=== PATIENT | male | born 1945 | race Hispanic/Latino ===

== ENCOUNTER → 2017-10-10 | Day surgery (SDC) | payer MEDICARE, BC ==
[~2017-10-10] MED LIST: AMLODIPINE BESY10 MG PO; ASPIR 8181 MG PO; ATENOLOL25 MG PO; ATORVASTATIN CA10 MG PO; FENTANYL CITRATE/PF 100MCG/2 ML INJ ONE; FINASTERIDE5 MG PO; FLOMAX0.4 MG PO; GLIMEPIRIDE2 MG PO; HYDROCHLOROTHIA25 MG PO; LISINOPRIL40 MG PO; MIDAZOLAM HCL 2 MG/2 ML VIAL ONE; OR PHACO EYE KIT ONE; PREOP PHACO EYE KIT ONE
== END | disposition home or self-care (01) ==
LOC: OR 12:39
PROVIDERS: ATTEND Ophthalmology
DX: H25.11 Age-related nuclear cataract, right eye (principal); G47.33 Obstructive sleep apnea (adult) (pediatric); I10 Essential (primary) hypertension; E11.9 Type 2 diabetes mellitus without complications; R00.1 Bradycardia, unspecified; I45.10 Unspecified right bundle-branch block; Z88.6 Allergy status to analgesic agent; Z88.2 Allergy status to sulfonamides; Z88.8 Allergy status to other drugs, medicaments and biological substances; Z79.82 Long term (current) use of aspirin; Z79.84 Long term (current) use of oral hypoglycemic drugs
CPT/HCPCS: 36415; 66984; 82948; 93005; J2250; V2632

== ENCOUNTER 2018-04-05 21:00 | Emergency (ER) | payer MEDICARE, BC ==
[~2018-04-05] VITALS: Ht 170.2 cm; Wt 87.5 kg
[~2018-04-05 21:00] MED LIST changes: -FENTANYL CITRATE/PF 100MCG/2 ML INJ ONE; -MIDAZOLAM HCL 2 MG/2 ML VIAL ONE; -OR PHACO EYE KIT ONE; -PREOP PHACO EYE KIT ONE
--- OUTSIDE RECORDS SUMMARY | 2018-04-05 21:02 | XMS REPORT ---
Author Organization Unknown Address [address] [place] [address] Phone [phone] Care Team Providers Care Bag Sewer Name Role Phone BEN GR MD 115 [phone] Allergies Code Code System Name Reaction Severity Status Onset 6809 RxNorm Metformin Abdominal Pain Moderate to Severe Active Sulfa (Sulfonamide Antibiotics) Active 157834 RxNorm Tylenol-codeine #3 Active Medications Name Status Start Date Stop Date amlodipine 10 mg tablet Take 1 tablet every day by oral route for 90 days. Active Not available amlodipine besylate 10 mg tabs Completed 05/18/2017 apap/codeine tab 300-30mg Completed 01/25/2017 atorvastatin 10 mg tablet Take 1 tablet every day by oral route for 90 days. Active Not available atorvastatin calcium 10 mg tabs Completed 05/18/2017 doxycycline hyclate 100 mg caps Completed 01/25/2017 finasteride 5 mg tablet Take 1 tablet every day by oral route for 90 days. Active Not available finasteride 5 mg tabs Completed 05/18/2017 FreeStyle Lancets 28 gauge USE DIRECTED Active Not available FreeStyle Lite Strips TEST BLOOD SUGAR DIRECTED ONCE DAILY Active Not available glimepiride 4 mg tablet Take 1 tablet twice a day by oral route for 90 days. Active Not available glimepiride 4 mg tabs Completed 05/18/2017 hydrochlorothiazide 25 mg tablet Take 1 tablet every day by oral route for 90 days. Active Not available hydrochlorothiazide 25 mg tabs Completed 05/18/2017 lisinopril 40 mg tablet Take 1 tablet every day by oral route for 90 days. Active Not available lisinopril 40 mg tabs Completed 05/18/2017 metformin ER 500 mg tablet,extended release 24 hr Take 1 tablet twice a day by oral route for 90 days. Completed 05/18/2017 metformin hcl er 500 mg tb24 Completed 05/18/2017 tamsulosin 0.4 mg capsule Take 1 capsule every day by oral route for 90 days. Active Not available tamsulosin hcl 0.4 mg caps Completed 05/18/2017 Problems Name Status Onset Date Source Type II Diabetes Mellitus Uncontrolled Unknown 11/18/2016 Proteinuric Diabetic Nephropathy Active 11/18/2016 Hyperlipidemia Active 11/18/2016 Benign Essential Hypertension Active 11/18/2016 Nocturia Active 11/18/2016 Raised Prostate Specific Antigen Active 11/18/2016 Type 2 Diabetes Mellitus with Multiple Complications Unknown 11/18/2016 Lower Urinary Tract Symptoms Due to Benign Prostatic Hypertrophy Active 11/18/2016 Type 2 Diabetes Mellitus Active 05/18/2017 History of Tobacco Use Active 05/18/2017 Procedures Date Name Performed by 05/18/2017 US, Abdominal Aorta [facility] [address] [facility] [place] [id number] (Work Place) Notes: tempano plasty left lipoma removed rigt temperal Lab Results Date Name Specimen Result Interpretation Description Value Range Status Address 01/25/2017 CMP, Serum or Plasma Alt 18 U/L 0-55 U/L Final [facility]: [address] Ast 18 U/L 5-34 U/L Final [facility]: [address] Bun 12.8 mg/dL 8.4-25.7 mg/dL Final [facility]: [address] Alk Phos 71 unit/L 40-150 unit/L Final [facility]: [address] Glucose 81 mg/dL 70-99 mg/dL Final [facility]: [address] [place] [address], [place] Albumin 4.3 g/dL 3.5-5.0 g/dL Final [facility]: [address] Creatinine 0.83 mg/dL 0.72-1.25 mg/dL Final [facility]: [address] eGFR Non- >60 mL/min/1.73m2 >60 mL/min/1.73m2 Final [facility]: [address] Total Bilirubin 0.4 mg/dL 0.2-1.2 mg/dL Final [facility]: [address] eGFR - >60 mL/min/1.73m2 >60 mL/min/1.73m2 Final [facility]: [address] Sodium 144 mEq/L 136-145 mEq/L Final [facility]: [address] Potassium 4.5 mEq/L 3.5-5.1 mEq/L Final [facility]: [address] Chloride 106 mmol/L 98-107 mmol/L Final [facility]: [address] Total Protein 7.4 g/dL 6.4-8.3 g/dL Final [facility]: [address] Calcium 9.6 mg/dL 8.8-10.0 mg/dL Final [facility]: [address] Co2 27.6 mmol/L 23.0-31.0 mmol/L Final [facility]: [address] [place] [address] Anion Gap 10 calc Final [facility]: [address] [place] [address] 01/25/2017 HbA1C (Hemoglobin a1C), Blood High A1C W/eag 6.8 % 1.0-5.7 % Final [facility]: [address] [place] [address] Average Blood Glucose 148 mg/dL Final [facility]: [address] [place] [address] 11/17/2016 Fecal Occult Blood, Stool Fecal Globin (Medicare) by Immunochemistry not detected Final [facility]: [address] [place] [address] 08/18/2016 PSA, Serum or Plasma PSA, Total 2.09 NG/mL <4.00 NG/mL Final [facility]: [address] [place] [address] Glucose, Fingerstick, Blood Blood Glucose: mg/dl 115 [facility]: [address] Glucose, Fingerstick, Blood Blood Glucose: mg/dl 94 [facility]: [address] Glucose, Fingerstick, Blood Blood Glucose: mg/dl 157 [facility]: [address] Glucose, Fingerstick, Blood Blood Glucose: mg/dl 142 [facility]: [address] Past Encounters 05/18/2017 Type 2 Diabetes Mellitus; Benign Essential Hypertension; Hyperlipidemia; Lower Urinary Tract Symptoms Due to Benign Prostatic Hypertrophy; Nocturia; Abdominal Aortic Aneurysm Screening; Exposure to Hepatitis C Virus; At Risk for Falls; Depression Screening; Immunization Refused Trevin Perez Jr, MD: [address], [place] [address], Ph. 01/25/2017 Benign Essential Hypertension; Type II Diabetes Mellitus Uncontrolled; Hyperlipidemia; Lower Urinary Tract Symptoms Due to Benign Prostatic Hypertrophy Neeraj Palumbo MD: [address] [facility], [place] [address], Ph. Social History Smoking Status Former Smoker Notes: quit Vaccine List None recorded. Plan of Care Reminders Provider Appointments None recorded. Lab None recorded. Referral None recorded. Procedures None recorded. Surgeries None recorded. Imaging None recorded. Vitals 05/18/2017 09:15AM Est Patient Height 5 ft 7 in 01/25/2017 08:45AM Est Patient Height Weight BMI Blood Pressure 5 ft 7 in 208 lbs 32.6 kg/m2 130/80 mm[Hg]
[2018-04-05] MEDS ORDERED: ONDANSETRON HCL INJ 2MG/ML 2ML 2 MG/ML VIAL IV STA (21:07)
[2018-04-05 21:22] LABS: BASOPHILS # (AUTO) 0.1 (0.0-0.1); BASOPHILS % 0.6 % (0.0-1.0); EOSINOPHILS # (AUTO) 0.2 (0.0-0.4); EOSINOPHILS % 1.6 % (0.0-6.0); HEMATOCRIT 34.2 % (38.2-49.6); HEMOGLOBIN 11.7 g/dL (14.0-18.0); LYMPHOCYTES # (AUTO) 6.7 (1.0-3.2); LYMPHOCYTES % 55.3 % (18.0-39.1); MEAN CORPUSCULAR HEMOGLOBIN 28.5 pg (28-32); MEAN CORPUSCULAR HGB CONC 34.2 g/dL (31-35); MEAN CORPUSCULAR VOLUME 83.4 fL (81-99); MONOCYTES # (AUTO) 1.3 (0.2-0.8); MONOCYTES % 10.5 % (4.4-11.3); NEUTROPHILS # (AUTO) 3.8 (2.1-6.9); NEUTROPHILS % 31.7 % (38.7-80.0); PLATELET COUNT 133 x10e3/uL (140-360); RED CELL DISTRIBUTION WIDTH 13.2 % (11.7-14.4)
[2018-04-05] MEDS ORDERED: GLIMEPIRIDE1 MG PO (21:24)
[2018-04-05] MEDS ORDERED: ATORVASTATIN CA40 MG PO (21:24)
[2018-04-05] MEDS ORDERED: CALAN SR180 MG PO (21:24)
[2018-04-05] MEDS ORDERED: TAMSULOSIN HCL0.4 MG PO (21:24)
[2018-04-05] MEDS ORDERED: MORPHINE SULFATE INJ 4 MG/ML INJ 1ML IV NR (21:30)
[2018-04-05 21:34] LABS: INR 0.92; PROTHROMBIN TIME 13.2 seconds (11.9-14.5)
[2018-04-05 21:44] LABS: ALANINE AMINOTRANSFERASE 14 IU/L (0-55); ALBUMIN/GLOBULIN RATIO 1.5 (0.8-2.0); ALKALINE PHOSPHATASE 72 IU/L (40-150); AMYLASE 87 U/L (25-125); ANION GAP 16.4 mmol/L (8-16); BLOOD UREA NITROGEN 15 mg/dL (7-26); BUN/CREATININE RATIO 15 (6-25); CALCIUM 9.4 mg/dL (8.4-10.2); CARBON DIOXIDE 24 mmol/L (22-29); CHLORIDE 99 mmol/L (98-107); CREATINE KINASE 77 IU/L (30-200); CREATININE, SERUM 1.02 mg/dL (0.72-1.25); EST GLOMERULAR FILTRATION RATE > 60 ML/MIN (60-); GLUCOSE 124 mg/dL (74-118); LIPASE 127 U/L (8-78); POTASSIUM 3.4 mmol/L (3.5-5.1); SODIUM 136 mmol/L (136-145)
--- NOTE | 2018-04-05 22:13 | Diagnostic Imaging Report ---
EXAMINATION: CHEST 2 VIEWS INDICATION: CHEST, ABD PAIN COMPARISON: None FINDINGS: PA and lateral views TUBES and LINES: None. LUNGS: Lungs are well inflated. Lungs are clear. There is no evidence of pneumonia or pulmonary edema. PLEURA: No pleural effusion or pneumothorax. HEART AND MEDIASTINUM: The cardiomediastinal silhouette is unremarkable. BONES AND SOFT TISSUES: There are degenerative changes in the thoracic spine. Soft tissues are unremarkable. UPPER ABDOMEN: No free air under the diaphragm. IMPRESSION: No acute thoracic abnormality. Signed by: DR. Tom Bond MD on 04/05/2018 10:10 PM
[2018-04-05] MEDS ORDERED: IOPAMIDOL 370 MG/ML 200 ML INFUS..BTL INJ ONE (22:47)
[2018-04-05] MEDS ORDERED: SODIUM CHLORIDE 0.9% 50ML 50 ML ONE (22:47)
--- NOTE | 2018-04-05 22:50 | NUR ---
PT BACK FROM CT SCAN, HR DROPPING TO 35-40 AND THEN BACK UP TO 57, SB. REPEATED EKG. SPOUSE STATES HIS HR HAS BEEN DROPPING INTO 30'S FOR THE PAST 3 WEEKS, SINCE HIS RADIOGRAPHER MAMMOGRAPHER TOOK HIM OFF AMLODIPINE AND STARTED HIM ON VERAPAMIL. LAST DOSE OF VERAPAMIL WAS [address] SHAYLEE RIZZO.
--- NOTE | 2018-04-05 22:56 | Diagnostic Imaging Report ---
EXAM: CT Abdomen and Pelvis WITH contrast INDICATION ruq/epigastric pain COMPARISON: None. TECHNIQUE: Abdomen and pelvis were scanned utilizing a multidetector helical scanner from the lung base to the pubic symphysis after administration of IV contrast. Coronal and sagittal reformations were obtained. Routine protocol was performed. Scan was performed when during portal venous phase. IV CONTRAST: 100 mL of Isovue-370 ORAL CONTRAST: Water COMPLICATIONS: None RADIATION DOSE: Total DLP: 663.4 mGy*cm Estimated effective dose: (DLP x 0.015 x size factor) mSv Dose modulation, iterative reconstruction, and/or weight based adjustment of the mA/kV was utilized to reduce the radiation dose to as low as reasonably achievable. FINDINGS: LINES and TUBES: None. LOWER THORAX: Coronary artery calcifications. HEPATOBILIARY: 1.5 cm cyst at the hepatic dome. No biliary ductal dilation. GALLBLADDER: 3.8 cm gallstone in the neck. Distended gallbladder. No wall thickening or stranding. SPLEEN: No splenomegaly. PANCREAS: No focal masses or ductal dilatation. ADRENALS: No adrenal nodules KIDNEYS/URETERS: Kidneys enhance symmetrically. No hydronephrosis. No cystic or solid mass lesions. No stones. GI TRACT: No abnormal distention, wall thickening, or evidence of bowel obstruction. There are diverticula within the colon without evidence of diverticulitis. Appendix is normal. PELVIC ORGANS/BLADDER: Prostate measures 5 cm in transverse dimension with calcifications. LYMPH NODES: No lymphadenopathy. Scattered nonspecific subcentimeter mesenteric and retroperitoneal nodes. VESSELS: There is mild atherosclerotic disease in the aorta and major arterial branches. PERITONEUM / RETROPERITONEUM: No free air or fluid. BONES: Hemangiomas in multiple vertebral bodies, largest in L3. SOFT TISSUES: Unremarkable. IMPRESSION: Cholelithiasis with nonspecific gallbladder distention without pericholecystic stranding or gallbladder wall thickening. Given right upper quadrant pain, consider further evaluation with right upper quadrant ultrasound. Otherwise, no acute abnormalities in the abdomen or pelvis. Signed by: DR. Tom Bond MD on 04/05/2018 10:53 PM
--- NOTE | 2018-04-06 01:20 | Diagnostic Imaging Report ---
EXAM: Right Upper Quadrant Ultrasound INDICATION: ruq pain COMPARISON: CT abdomen and pelvis 04/05/2018 TECHNIQUE: Transverse and longitudinal images of the right upper abdomen were obtained. FINDINGS: Liver: Size: 15.4 cm in the right midclavicular line, normal Appearance: Normal echogenicity, smooth contour Mass: No focal masses Gallbladder: Stones/Sludge: 2.5 x 0.8 x 1.9 cm shadowing stone in the neck. Gallbladder sludge. Wall: 0.27 cm Appearance: No pericholecystic fluid or hydrops. Sonographic Calderon's Sign: Negative. Bile Ducts: Intrahepatic Ducts: No dilatation Extrahepatic Ducts: Common bile duct measures 0.3 cm, no dilatation Pancreas: Incompletely visualized due to overlying bowel gas, but no abnormality identified involving the visualized portions of the pancreas. Right Kidney: Size: 9.8 cm Echogenicity: Normal Parenchymal thickness: Normal Collecting system: No hydronephrosis Stones: None Cyst/Mass: None Vessels: Aorta: Visualized portions are normal Inferior Vena Cava: Visualized portions are normal Main Portal Vein: 0.8 cm, normal size with hepatopetal flow. Free Fluid: No ascites or pleural effusion IMPRESSION: Gallbladder stone and sludge without sonographic evidence of acute cholecystitis. Signed by: DR. Tom Bond MD on 04/06/2018 1:17 AM
== END 2018-04-06 04:50 | disposition home or self-care (01) ==
LOC: ER 21:00
DX: R10.11 Right upper quadrant pain (principal); R10.13 Epigastric pain; R10.84 Generalized abdominal pain; R11.0 Nausea; K80.20 Calculus of gallbladder without cholecystitis without obstruction
CPT/HCPCS: 36415; 71046; 74177; 76705; 80053; 82150; 82550; 82553; 83690; 84484; 85025; 85610; 85730; 93005; 99284; Q9967; J2270; J2405